=== PATIENT | female | born 1990 | race American Indian/Alaskan Native ===

== ENCOUNTER 2018-11-20 15:10 | Emergency (ER) | payer MEDICAID ==
[2018-11-20 15:21] VITALS: BP 123/77
--- NOTE | 2018-11-20 15:21 | Emergency Department Report ---
Chief Complaint: Dental/Oral Stated Complaint: TOOTHACHE Time Seen by Provider: 11/20/18 15:17 - HPI History of Present Illness: This is a 28-year-old female nontoxic well in appearance with no signs of distress presents to the ED with complaint of toothache right upper side for 4 days. Patient denies any facial swelling. Denies following up with a dentist. Denies any fever, chills, headache, nausea, vomiting, chest pain or SOB. Denies any other complaints. Denies any allergies. - ROS Review of Systems: Constitutional: denies: chills, fever HEENT: admits: dental pain. Respiratory: denies: cough, shortness of breath, wheezing Cardiovascular: denies: chest pain, palpitations Gastrointestinal: denies: abdominal pain, nausea, diarrhea Skin: denies: lesions and rash Neurological: denies: headache, weakness, paresthesias Psychiatric: denies: anxiety, depression - Exam Vital Signs: Vital Signs 11/20/18 15:17 Temperature 98.6 F Pulse Rate 88 Respiratory 18 Rate Blood Pressure 123/77 O2 Sat by Pulse 98 Oximetry Physical Exam: General appearance: in no apparent distress, well in appearance HEENT: Present: Partial tooth #3, dark brown dental caries center tooth, gingival swelling, and tenderness, moist mucous membranes. Neck exam: Present: normal inspection. Absent: tenderness, meningismus Respiratory exam: Present: normal lung sounds bilaterally. Absent: respiratory distress Cardiovascular Exam: Present: regular rate, normal rhythm. Absent: systolic murmur, diastolic murmur, rubs, gallop GI/Abdominal exam: Present: soft, normal bowel sounds. Absent: distended, tenderness, guarding, rebound Neurological exam: Present: alert, oriented X3, CN II-XII intact. Absent: motor sensory deficit Psychiatric exam: Absent: depressed, flat affect Skin exam: Present: warm, dry, intact, normal color. Absent: rash MSE screening note: Focused history and physical exam performed. Due to findings the following was ordered: ED Medical Decision Making - Medical Decision Making This is a 28-year-old female that presents to the ER with dental pain for 3 days. Patient is stable and was examined by me. There is a dark brown dental caries center #3 with gingival swelling, and tenderness. Negative facial cellulitis, swelling, or abscess. Patient was instructed to Follow-up with a dentist for continued care. Start Tramadol, naprosyn, and amoxicillin. At time of discharge, the patient does not seem toxic or ill in appearance. No acute signs of distress noted. Patient agrees to discharge treatment plan of care. No further questions noted by the patient. ED Disposition for MSE Clinical Impression: Toothache, Dental caries Fracture of tooth Qualifiers: Encounter type: initial encounter Fracture type: closed Qualified Code(s): S02.5XXA - Fracture of tooth (traumatic), initial encounter for closed fracture Disposition: TO HOME OR SELFCARE Is pt being admited?: No Does the pt Need Aspirin: No Condition: Stable Instructions: Toothache (ED), Dental Caries (ED) Additional Instructions: Follow-up with a dentist in 3-5 days or if symptoms worsen and continue return to the emergency department as soon as possible. Prescriptions: Naproxen [Naprosyn] 500 mg PO BID PRN #20 tablet PRN Reason: Pain, Moderate (4-6) Amoxicillin [Trimox CAP] 500 mg PO BID #14 capsule traMADol [Ultram 50 MG tab] 50 mg PO Q6HR PRN #8 tablet PRN Reason: Pain Referrals: MILA MENDEZ NP-C [Primary Care Provider] - 3-5 Days [facility] [Outside] - 3-5 Days [facility] [Outside] - 3-5 Days [facility] [Outside] - 3-5 Days Forms: Work/School Release Form(ED) Time of Disposition: 16:11
== END 2018-11-20 16:24 | disposition home or self-care (01) ==
LOC: ED 15:10
DX: S02.5XXA Fracture of tooth (traumatic), initial encounter for closed fracture (principal); K02.9 Dental caries, unspecified; X58.XXXA Exposure to other specified factors, initial encounter; Y93.89 Activity, other specified; Y92.89 Other specified places as the place of occurrence of the external cause; Y99.8 Other external cause status
CPT/HCPCS: 99282